=== PATIENT | female | born 1960 | race Caucasian/White ===

== ENCOUNTER → 2019-10-14 09:45 | Outpatient (CLI) | payer MEDICARE, SELFPAY ==
[2019-10-16 20:07] LABS: QNTFERON TB Mitogen Value > 10.00 IU/mL (.); QNTFERON TB Nil Value 0.03 IU/mL (.); QNTFERON TB1+ Ag Value 0.03 IU/mL (.); QNTFERON TB2+ Ag Value 0.02 IU/mL (.)
[2019-10-16 20:24] LABS: QNTIFERON TB Positive Criteria Negative (Negative)
== END ==
PROVIDERS: PCP Family Medicine; Referring Provider Internal Medicine Rheumatology; Visit Provider Internal Medicine Rheumatology
DX: M06.09 Rheumatoid arthritis without rheumatoid factor, multiple sites (principal); Z79.899 Other long term (current) drug therapy; M79.7 Fibromyalgia; M17.0 Bilateral primary osteoarthritis of knee; K21.9 Gastro-esophageal reflux disease without esophagitis; R68.2 Dry mouth, unspecified; E78.5 Hyperlipidemia, unspecified; M47.897 Other spondylosis, lumbosacral region; R32 Unspecified urinary incontinence; G47.33 Obstructive sleep apnea (adult) (pediatric); F33.9 Major depressive disorder, recurrent, unspecified; F44.81 Dissociative identity disorder; F60.3 Borderline personality disorder
CPT/HCPCS: 36415; 86480